=== PATIENT | male | born 1945 | race Caucasian/White ===

== ENCOUNTER 2017-02-16 07:47 | Day surgery (SDC) | payer OTHER, MEDICARE ==
[2017-02-16] MEDS ORDERED: LIDOCAINE 1% 2 ML INJ ONE (08:03)
[2017-02-16] MEDS ORDERED: LR 1,000 ML IV ONE (08:15)
[2017-02-16 09:00] LABS: ANION GAP 12 mEq/L (8-16); CALCIUM 9.5 mg/dL (8.5-10.4); CARBON DIOXIDE 25 mEq/l (22-31); CHLORIDE 101 mEq/L (97-110); GLOMERULAR FILTRATION RATE > 60; GLUCOSE 117 mg/dL (70-100); POTASSIUM 3.5 mEq/L (3.5-5.2); SODIUM 138 mEq/L (134-144)
[2017-02-16] MEDS ORDERED: PROPOFOL/EMULSION 500 MG/50 ML BOTTLE IV ONE ×2 (09:32→10:15)
[2017-02-16] MEDS ORDERED: PROPOFOL 200 MG/20 ML VIAL ONE (10:17)
--- NOTE | 2017-02-16 11:42 | GPN ---
[f rep st] PROCEDURE NOTE PREPROCEDURE DIAGNOSIS: History of descending colon polyp, here for endoscopic therapy. POSTPROCEDURE DIAGNOSIS: Multiple colon polyps and large descending colon polyp status post removal. PROCEDURES PERFORMED: 1. Colonoscopy with biopsies. 2. Colonoscopy with endoscopic mucosal resection. MEDICATIONS: Monitored anesthesia care. INDICATIONS: The patient is a 71-year-old gentleman with a history of multiple colon polyps including a large descending colon polyp, which was flat and not previously removed. The site was previously tattooed. He is here today for endoscopic removal. The risks and benefits of the procedure were discussed with the patient and consent obtained. Risks include, but not limited to, bleeding, perforation, and sedation. Patient is ASA class 2. PROCEDURE: The adult colonoscope was advanced into the terminal ileum, which appeared normal. The cecum and appendiceal orifice were normal. The ascending colon showed a 2 mm polyp, which was removed using cold biopsy forceps, sent off to Pathology. Four additional polyps were found in the ascending colon, which were removed using cold snare polypectomy technique. The polyps ranged in size from 3-5 mm. The descending colon showed 2 polyps, both removed using cold biopsy forceps and sent off to Pathology. These were placed in bottle 3. Bottle 4 is the large descending colon polyp, which was previously identified. There was a 2 cm flat descending colon polyp adjacent to a tattoo site. The polyp was initially injected at the base with 0.5 mL of 1:10,000 epinephrine followed by 3 mL of normal saline for the purpose of endoscopic mucosal resection. The polyp was lifted. Next, the hexagonal snare was used to removed the polyp in 3 pieces. Finally, 3 hemoclips were placed over the defect. There was no obvious residual polyp at the end of the procedure. Again , all fragments from this polyp were placed in bottle 4. Two polyps were found in the sigmoid colon measuring 5-7 mm, and they were removed using cold snare polypectomy technique and placed in bottle 5. Bottle 6 is a 4 mm polyp removed using cold snare polypectomy technique from the rectum. Retroflexed views in the rectum were otherwise normal. IMPRESSION: Multiple colon polyps status post removal using cold biopsy technique and endoscopic mucosal resection of the large descending colon polyp. RECOMMENDATIONS: 1. Discharge home with escort. 2. Advance diet as tolerated. 3. Continue current medications. 4. Repeat colonoscopy in 6 months at the hospital for review and evaluation of the descending colon polypectomy site to ensure the polyps have been completely eradicated. 5. Follow up the final biopsy results. Results are available within 10 days. Thank you for allowing me to participate in the care of this patient. Please do not hesitate to call with questions. /[id number]/MODL MTDD
== END 2017-02-16 11:57 | disposition home or self-care (01) ==
LOC: FSGY 07:47
PROVIDERS: ATTEND Internal Medicine Gastroenterology
PROC: 0DBK8ZX Excision of Ascending Colon, Via Natural or Artificial Opening Endoscopic, Diagnostic (ICD-10-PCS; principal; 2017-02-16 09:30)
PROC: 0DBM8ZX Excision of Descending Colon, Via Natural or Artificial Opening Endoscopic, Diagnostic (ICD-10-PCS; principal; 2017-02-16 09:30)
PROC: 0DBN8ZX Excision of Sigmoid Colon, Via Natural or Artificial Opening Endoscopic, Diagnostic (ICD-10-PCS; principal; 2017-02-16 09:30)
PROC: 0DBP8ZX Excision of Rectum, Via Natural or Artificial Opening Endoscopic, Diagnostic (ICD-10-PCS; principal; 2017-02-16 09:30)
DX: D12.2 Benign neoplasm of ascending colon (principal); D12.4 Benign neoplasm of descending colon; D12.5 Benign neoplasm of sigmoid colon; D12.8 Benign neoplasm of rectum; Z86.010 Personal history of colon polyps; E11.9 Type 2 diabetes mellitus without complications; E78.00 Pure hypercholesterolemia, unspecified; I10 Essential (primary) hypertension; K21.9 Gastro-esophageal reflux disease without esophagitis
CPT/HCPCS: J0171; J2704

== ENCOUNTER 2017-08-23 05:54 | Day surgery (SDC) | payer OTHER, MEDICARE ==
[2017-08-23] MEDS ORDERED: LIDOCAINE 1% 2 ML INJ ONE (06:27)
[2017-08-23] MEDS ORDERED: LR 1,000 ML IV ONE (06:50)
[2017-08-23] MEDS ORDERED: LIDOCAINE 1% 2 ML INJ ID PRN (06:50)
[2017-08-23 07:12] LABS: ANION GAP 12 mEq/L (8-16); CALCIUM 9.5 mg/dL (8.5-10.4); CARBON DIOXIDE 25 mEq/l (22-31); CHLORIDE 97 mEq/L (97-110); GLOMERULAR FILTRATION RATE > 60; GLUCOSE 97 mg/dL (70-100); POTASSIUM 3.3 mEq/L (3.5-5.2); SODIUM 134 mEq/L (134-144)
--- NOTE | 2017-08-23 07:20 | PDANEPAE ---
ANE History of Present Illness history of colon lession, polyps ANE Past Medical History - Cardiovascular History Hx Hypertension: Yes Hx Arrhythmias: No Hx Chest Pain: No Hx Coronary Artery / Peripheral Vascular Disease: No Hx CHF / Valvular Disease: No Hx Palpitations: No Cardiovascular History Comment: chol Rx. Ablation for SVT -tachy resolved - Pulmonary History Hx COPD: No Hx Asthma/Reactive Airway Disease: No Hx Recent Upper Respiratory Infection: No Hx Oxygen in Use at Home: No Hx Sleep Apnea: No Sleep Apnea Screening Result - Last Documented: Positive Pulmonary History Comment: BRIELLE triggers-denies BRIELLE - Neurologic History Hx Cerebrovascular Accident: No Hx Seizures: No Hx Dementia: No - Endocrine History Hx Diabetes: Yes Endocrine History Comment: NIDDM. Hgb A1C 6.2 - Renal History Hx Renal Disorders: Yes Renal History Comment: enlarged prostate - Liver History Hx Hepatic Disorders: No - Neurological & Psychiatric Hx Hx Neurological and Psychiatric Disorders: Yes Neurological / Psychiatric History Comment: depression- takes Rx - Cancer History Hx Cancer: No - Congenital Disorder History Hx Congenital Disorders: No - GI History Hx Gastrointestinal Disorders: Yes Gastrointestinal History Comment: heartburn, polyp removed -03-30 w/ colonoscopy /polyp removal 6 mos prior to that. Denies pain. - Other Health History Other Health History: Double vison -noted after bilat cataract extractions - resolving with 2 sets of eyeglasses;. seasonal allergies - runny nose - Chronic Pain History Chronic Pain: No - Surgical History Prior Surgeries: Bilat cataract extraction w/IOL Sep/Oct. Percutaneous Nephrolithotomy. ablation for SVT . tonsillectomy -child ANE Review of Systems Review of Systems: - Exercise capacity METS (RN): 4 METS ANE Patient History - Allergies Allergies/Adverse Reactions: NSAIDS (Non-Steroidal Anti-Inflamma Allergy (Verified 08/01/17 15:14) Swelling/neck,face,throat Penicillins Allergy (Verified 08/01/17 15:14) Hives CONTRAST DYE Allergy (Uncoded 01/19/17 13:15) SNEEZING - Home Medications Home Medications: RX: buPROPion XL [Wellbutrin 150mg XL] 300 mg PO DAILY 12/02/14 [Last Taken 1 Day Ago ~08/22/17] RX: metFORMIN HCL [Glucophage 500 mg (*)] 500 mg PO BIDMEAL 12/02/14 [Last Taken 1 Day Ago ~08/22/17] Atorvastatin Calcium 01/19/17 [Last Taken 2 Days Ago ~08/21/17] Cetirizine 01/19/17 [Last Taken 2 Days Ago ~08/21/17] Dextroamphetamine ER 01/19/17 [Last Taken 1 Day Ago ~08/22/17] Doxazosin Mesylate 01/19/17 [Last Taken 08/23/17 04:00] Hydrochlorothiazide 01/19/17 [Last Taken 1 Day Ago ~08/22/17] Magnesium Citrate 01/19/17 [Last Taken 1 Week Ago ~08/16/17] Ranitidine HCl 01/19/17 [Last Taken 1 Day Ago ~08/22/17] hydrALAZINE 01/19/17 [Last Taken 08/23/17 04:00] - NPO status NPO Since - Liquids (Date): 08/22/17 NPO Since - Liquids (Time): 22:00 NPO Since - Solids (Date): 08/21/17 NPO Since - Solids (Time): 19:00 - Smoking Hx Smoking Status: Former smoker ANE Labs/Vital Signs - Labs Result Diagrams: 08/23/17 06:32 - Vital Signs Blood Pressure: 121/81 Heart Rate: 77 Respiratory Rate: 18 O2 Sat (%): 94 Height: 182.88 cm Weight: 88.451 kg ANE Physical Exam - Airway Neck exam: FROM Mallampati Score: Class 1 Mouth exam: normal dental/mouth exam - Pulmonary Pulmonary: no respiratory distress - Cardiovascular Cardiovascular: regular rate and rhythym - ASA Status ASA Status: II ANE Anesthesia Plan Total IV Anesthesia: Yes
--- NOTE | 2017-08-23 07:26 | PDGENHP ---
History & Physical Chief Complaint: Hx of polyps Relevant Physical Exam: GEN: NAD. Cardiac: RRR. Lungs: CTA B. Abd: Soft, nt, nd
[2017-08-23] MEDS ORDERED: PROPOFOL 200 MG/20 ML VIAL ONE ×3 (07:29→08:06)
[2017-08-23] MEDS ORDERED: NALOXONE HCL 0.4 MG/ML INJ IVP PRN (08:18)
--- NOTE | 2017-08-23 08:24 | POSTANESTH ---
Post Anesthetic Evaluation Cardiovascular Status: Normal, Stable Respiratory Status: Normal, Stable Level of Consciousness/Mental Status: Can Participate in Eval Pain Control: Adequate, Prn Tx Ordered Nausea/Vomiting Control: Adequate, Prn Tx Ordered Complications Possibly Related to Anesthesia: None Noted
--- NOTE | 2017-08-23 08:28 | GIREPORT ---
[facility] - Endoscopy Department Patient Name: Chintan Vasquez Procedure Date: 08/23/2017 7:43 AM Patient Type: Outpatient Attending MD/ ER Physician: Jeff Dye MD Procedure: Colonoscopy Indications: High risk colon cancer surveillance: Personal history of colonic polyps . Piecemeal polypectomy 6 months ago. Providers: Jeff Dye MD Medicines: Monitored Anesthesia Care Complications: No immediate complications. Description of Procedure: After obtaining informed consent, the scope was passed under direct vision. Throughout the proce dure, the patient's blood pressure, pulse, and oxygen saturations were monitored continuously. The Colonoscope was introduced through the anus and advanced to the terminal ileum, with identificat ion of the appendiceal orifice and IC valve. The colonoscopy was performed without difficulty. The patient tolerated the procedure well. The quality of the bowel preparation was good. Findings: The perianal and digital rectal examinations were normal. The terminal ileum appeared normal. A tattoo was seen in the descending colon. A post-polypectomy scar was found at the tattoo site. There was no evidence of residual polyp tissue. Two sessile polyps were found in the rectum and transverse colon. The polyps were 1 to 2 mm in s ize. These polyps were removed with a cold biopsy forceps. Resection and retrieval were complete. Verification of patient identification for the specimen was done by the physician and nurse jazmine montgomery the patient's name and date. Estimated blood loss was minimal. Seven sessile polyps were found in the rectum, sigmoid colon and descending colon. The polyps we re 3 to 5 mm in size. These polyps were removed with a cold snare. Resection and retrieval were compl ete. Verification of patient identification for the specimen was done by the physician and nurse jazmine g the patient's name and date. Estimated blood loss was minimal. The retroflexed view of the distal rectum and anal verge was normal and showed no anal or rectal abnormalities. Estimated Blood Loss: Estimated blood loss: none. Post Op Diagnosis: - The examined portion of the ileum was normal. - A tattoo was seen in the descending colon. A post-polypectomy scar wa s found at the tattoo site. There was no evidence of residual polyp tissu e. - Two 1 to 2 mm polyps in the rectum and in the transverse colon, remov ed with a cold biopsy forceps. Resected and retrieved. - Seven 3 to 5 mm polyps in the rectum, in the sigmoid colon and in the descending colon, removed with a cold snare. Resected and retrieved. - The distal rectum and anal verge are normal on retroflexion view. Recommendation: - Discharge patient to home (with escort). - Resume previous diet. - Continue present medications. - Repeat colonoscopy in 1 year for surveillance (history of multiple po lyps) - Await pathology results. Results are available within 10 days. - Thank you for allowing me to participate in the care of your patient. Attending Participation: I personally performed the entire procedure. Jeff Dye MD Jeff Dye MD 08/23/2017 8:28:09 AM Number of Addenda: 0 Note Initiated On: 08/23/2017 7:43 AM Total Procedure Duration Time 0 hours 33 minutes 30 seconds [email or web address]
[2017-08-23 09:34] VITALS: BP 112/65; PULSE 66; RESP 16; TEMP 96.8; O2SAT 95
== END 2017-08-23 09:40 | disposition home or self-care (01) ==
LOC: FSGY 05:54
PROVIDERS: ATTEND Internal Medicine Gastroenterology
PROC: 0DBM8ZX Excision of Descending Colon, Via Natural or Artificial Opening Endoscopic, Diagnostic (ICD-10-PCS; principal; 2017-08-23 07:30)
PROC: 0DBP8ZX Excision of Rectum, Via Natural or Artificial Opening Endoscopic, Diagnostic (ICD-10-PCS; principal; 2017-08-23 07:30)
PROC: 0DBN8ZX Excision of Sigmoid Colon, Via Natural or Artificial Opening Endoscopic, Diagnostic (ICD-10-PCS; principal; 2017-08-23 07:30)
PROC: 0DBL8ZX Excision of Transverse Colon, Via Natural or Artificial Opening Endoscopic, Diagnostic (ICD-10-PCS; principal; 2017-08-23 07:30)
DX: D12.4 Benign neoplasm of descending colon (principal); D12.5 Benign neoplasm of sigmoid colon; D12.3 Benign neoplasm of transverse colon; K62.1 Rectal polyp
CPT/HCPCS: J2704